=== PATIENT | female | born 1985 | race Caucasian/White ===

== ENCOUNTER 2017-03-14 17:22 | Observation (INO) | payer OTHER ==
[~2017-03-14] VITALS: Ht 167.6 cm; Wt 82.3 kg
[~2017-03-14 17:22] MED LIST: BENADRYL50 MG PO; PEPCID40 MG PO; PREDNISONE20 MG PO; no home
[2017-03-14 18:09] LABS: MCH 30.2 PG (29.0-34.0); MCHC 35.3 G/DL (30.0-36.0); MCV 85.6 FL (83-99); MEAN PLAT.VOLUME 9.7 uM^3 (9.5-12.4); PLATELET COUNT 273 K/uL (156-360); RBC DIS.WIDTH-CV 11.9 % (11.8-14.6); RBC DIS.WIDTH-SD 37.1 % (39-53); RED BLOOD COUNT 5.26 M/uL (3.80-5.20); WHITE BLOOD COUNT 15.1 K/uL (4.1-10.2)
[2017-03-14 18:17] LABS: CHLORIDE 108 mEq/L (99-109); POTASSIUM 3.8 mEq/L (3.7-5.4); SODIUM 139 mEq/L (136-147)
[2017-03-14 18:20] LABS: GLUCOSE 114 mg/dL (70-99)
[2017-03-14 18:21] LABS: ANION GAP 16 MEQ/L (2-14); TOTAL BILIRUBIN 1.3 mg/dL (0.0-1.0)
[2017-03-14 18:23] LABS: ALKALINE PHOSPHATASE 86 IU/L (3-129); GFR ESTIMATE (CALCULATED) > 59 mL/min/
[2017-03-14 18:24] LABS: UREA NITROGEN (BUN) 11 mg/dL (9-23)
[2017-03-14 18:33] LABS: QUANTITATIVE HCG < 4.0 MIU/ML
[2017-03-14 19:29] LABS: ADD MIUA? YES; BILIRUBIN NEGATIVE; BLOOD SMALL; COLOR YELLOW ((YELLOW)); GLUCOSE (STRIP) NEGATIVE; KETONES 80; LEUKOCYTES MODERATE; NITRITE NEGATIVE; PROTEIN (STRIP) 30; SPECIFIC GRAVITY 1.025 (1.000-1.030); UROBILINOGEN 0.2 MG/DL (0.2-1.0)
[2017-03-14 19:54] LABS: BACTERIA 1+ /HPF; EPITHELIAL CELLS 2+ /HPF; MUCUS NONE SEEN /LPF; RED BLOOD CELLS 0-5 /HPF (0-5); UCUL ADDED? NO; WHITE BLOOD CELLS 0-5 /HPF (0-5)
[2017-03-15 02:38] VITALS: BP 107/66
[2017-03-15 08:50] VITALS: BP 124/82
[2017-03-15 11:18] VITALS: BP 116/71
[2017-03-15 15:05] VITALS: BP 120/73
[2017-03-15] MEDS ORDERED: CIPRO500 MG PO (15:11)
[2017-03-15] MEDS ORDERED: FAMOTIDINE20 MG PO (15:11)
[2017-03-15] MEDS ORDERED: PHENAZOPYRIDIN100 MG PO (15:11)
[2017-03-15] MEDS ORDERED: ZOFRAN ODT8 MG PO (15:19)
== END 2017-03-15 15:46 | disposition home or self-care (01) ==
LOC: RME 17:22 → EME 17:22 → 5WEST 03-15 01:43 → EDOF 03-15 01:43 → 5WEST 03-15 02:18
DX: R10.9 Unspecified abdominal pain (principal); N39.0 Urinary tract infection, site not specified; K29.70 Gastritis, unspecified, without bleeding
CPT/HCPCS: 74177; 80053; 81003; 84702; 85027; 87086; 93005; 99281; 99285; G0378; J0696; J1885; J2405; J2765; J7030; J7040; J7050; Q0169; S0028